=== PATIENT | female | born 1995 | race American Indian/Alaskan Native ===

== ENCOUNTER 2020-06-17 00:16 | Emergency (ER) | payer OTHER | END 2020-06-17 00:45 | disposition left against medical advice (07) | LOC: ED 00:16 | DX: H57.11 Ocular pain, right eye (principal); R10.9 Unspecified abdominal pain; Z53.21 Procedure and treatment not carried out due to patient leaving prior to being seen by health care provider ==

== ENCOUNTER 2020-06-24 12:06 | Emergency (ER) | payer OTHER ==
[2020-06-24 12:17] VITALS: BP 118/68
--- NOTE | 2020-06-24 13:20 | Cat Scan Report ---
CT HEAD WITHOUT CONTRAST INDICATION / CLINICAL INFORMATION: headache. TECHNIQUE: All CT scans at this location are performed using CT dose reduction for ALARA by means of automated e xposure control. COMPARISON: None available. FINDINGS: HEMORRHAGE: None. EXTRA-AXIAL SPACES: Normal in size and morphology for the patient's age. VENTRICULAR SYSTEM: Normal in size and morphology for the patient's age. CEREBRAL PARENCHYMA: No significant abnormality. No acute territorial infarct. MIDLINE SHIFT OR HERNIATION: None. CEREBELLUM / BRAINSTEM: No significant abnormality. ORBITS: Normal as visualized. SOFT TISSUES of HEAD: No significant abnormality. CALVARIUM: No significant abnormality. PARANASAL SINUSES / MASTOID AIR CELLS: Normal as visualized. ADDITIONAL FINDINGS: None. IMPRESSION: 1. No acute intracranial abnormality. Signer Name: Ivory Varela MD Signed: 06/24/2020 1:15 PM Workstation Name: [id number]
[2020-06-24 13:23] LABS: Basophils % (Auto) 0.6 % (0.0-1.8); Eosinophils # (Auto) 0.2 K/mm3 (0.0-0.4); Eosinophils % (Auto) 3.4 % (0.0-4.3); Lymphocytes # (Auto) 1.7 K/mm3 (1.2-5.4); Lymphocytes % (Auto) 33.4 % (13.4-35.0); Mean Corpuscular HGB Conc 36 % (30-34); Mean Corpuscular Volume 89 fl (79-97); Monocytes # (Auto) 0.5 K/mm3 (0.0-0.8); Monocytes % (Auto) 8.9 % (0.0-7.3); Platelet Count 327 K/mm3 (140-440); Red Blood Count 4.28 M/mm3 (3.65-5.03); Red Cell Distribution Width 13.4 % (13.2-15.2)
[2020-06-24 13:27] LABS: Hematocrit 38.2 % (30.3-42.9); Hemoglobin 13.8 gm/dl (10.1-14.3)
[2020-06-24 13:31] LABS: Alanine Aminotransferase 10 units/L (7-56); Albumin 3.9 g/dL (3.9-5); Blood Urea Nitrogen 10 mg/dL (7-17); Calcium 8.9 mg/dL (8.4-10.2); Hemolysis Index 4
[2020-06-24 13:40] LABS: BUN/Creatinine Ratio 17
--- NOTE | 2020-06-24 14:43 | Emergency Department Report ---
ED Neuro Deficit HPI - General Chief Complaint: Neuro Symptoms/Deficit Stated Complaint: RIGHT SIDE WEAKNESS Time Seen by Provider: 06/24/20 12:31 Source: patient Mode of arrival: Ambulatory Limitations: No Limitations - History of Present Illness Initial Comments: 24-year-old F Faroese female with past medical history of schizophrenia currently patient ankle presents emergency department complaining of a dull headache and some right-sided numbness of her entire body but reports no loss of consciousness no blurred vision no speech deficits no trauma. Reports no fever, chills, sweats no chest pain palpitations. States this is been going on for the last day or so for unknown reasons and she wants to get checked out because many people think she is just faking. Severity: mild Improves With: none Worsens With: none On Anticoagulants: No Context: gradual onset Associated Symptoms: denies other symptoms. denies: chest pain, cough, diaphoresis, loss of appetite, shortness of breath, syncope, weakness - Related Data Allergies/Adverse Reactions: Allergies Allergy/AdvReac Type Severity Reaction Status Date / Time Penicillins Allergy Unknown Verified 06/24/20 12:10 ED Review of Systems ROS: Stated complaint: RIGHT SIDE WEAKNESS Other details as noted in HPI Comment: All other systems reviewed and negative ED Past Medical Hx - Past Medical History Previous Medical History?: Yes Hx Psychiatric Treatment: Yes (sczhiophrenia, bipolar, ocd) - Surgical History Past Surgical History?: Yes Additional Surgical History: hernia repair - Social History Smoking Status: Never Smoker Substance Use Type: None ED Neuro Physical Exam - General Limitations: No Limitations General appearance: alert, in no apparent distress Suspected Stroke: No - Head Head exam: Present: atraumatic, normocephalic - Eye Eye exam: Present: normal appearance, PERRL, EOMI Pupils: Present: normal accommodation - ENT ENT exam: Present: normal exam, mucous membranes moist - Neck Neck exam: Present: normal inspection - Respiratory Respiratory exam: Present: normal lung sounds bilaterally. Absent: respiratory distress - Cardiovascular Cardiovascular Exam: Present: regular rate, normal rhythm. Absent: systolic murmur, diastolic murmur, rubs, gallop - GI/Abdominal GI/Abdominal exam: Present: soft, normal bowel sounds - Extremities Exam Extremities exam: Present: normal inspection - Back Exam Back exam: Present: normal inspection - Neurological Exam Neurological exam: Present: alert, oriented X3, CN II-XII intact, normal gait, reflexes normal, other (No ataxia speech normal gait coordinated and smooth memory recall). Absent: motor sensory deficit - NIHSS Assessment Interval: Baseline 1a. Level of Consciousness: alert/keenly responsive 1b. LOC Questions: answers both correctly 1c. LOC Commands: performs tasks correctly 2. Best Gaze: normal 3. Visual: no visual loss 4. Facial Palsy: normal symmetrical movement 5b. Motor Arm Right: no drift 5a. Motor Arm Left: no drift 6a. Motor Leg Left: no drift 6b. Motor Leg Right: no drift 7. Limb Ataxia: absent 8. Sensory: normal 9. Best Language: no aphasia 10. Dysarthria: normal 11. Extinction/Inattention: no abnormality Total Score: 0 Stroke Severity: No Stroke Symptoms - Psychiatric Psychiatric exam: Present: normal affect, normal mood, anxious (Has been anxious about her mom being on the depression she is making things up and that it is related to her schizophrenia diagnosis patient requesting several times to speak with her mom have asked to call mom to prove that she is not faking). Absent: flat affect, manic, homicidal ideation, suicidal ideation - Skin Skin exam: Present: warm, dry, intact, normal color. Absent: rash ED Course Vital Signs 06/24/20 12:11 Temperature 99.4 F Pulse Rate 103 H Respiratory 18 Rate Blood Pressure 118/68 O2 Sat by Pulse 96 Oximetry - Lab Data Result diagrams: 06/24/20 13:01 06/24/20 12:57 Lab Results 06/24/20 06/24/20 06/24/20 Range/Units 12:29 12:57 13:01 WBC 5.2 (4.5-11.0) K/mm3 RBC 4.28 (3.65-5.03) M/mm3 Hgb 13.8 (10.1-14.3) gm/dl Hct 38.2 (30.3-42.9) % MCV 89 (79-97) fl MCH 32 (28-32) pg MCHC 36 H (30-34) % RDW 13.4 (13.2-15.2) % Plt Count 327 (140-440) K/mm3 Lymph % (Auto) 33.4 (13.4-35.0) % [place] % (Auto) 8.9 H (0.0-7.3) % Eos % (Auto) 3.4 (0.0-4.3) % Baso % (Auto) 0.6 (0.0-1.8) % Lymph # 1.7 (1.2-5.4) K/mm3 [place] # 0.5 (0.0-0.8) K/mm3 Eos # 0.2 (0.0-0.4) K/mm3 Baso # 0.0 (0.0-0.1) K/mm3 Seg Neutrophils % 53.7 (40.0-70.0) % Seg Neutrophils # 2.8 (1.8-7.7) K/mm3 Sodium 138 (137-145) mmol/L Potassium 3.9 (3.6-5.0) mmol/L Chloride 105.5 (98-107) mmol/L Carbon Dioxide 21 L (22-30) mmol/L Anion Gap 15 mmol/L BUN 10 (7-17) mg/dL Creatinine 0.6 (0.6-1.2) mg/dL Estimated GFR > 60 ml/min BUN/Creatinine Ratio 17 % Glucose 91 (65-100) mg/dL POC Glucose 96 (70-105) Calcium 8.9 (8.4-10.2) mg/dL Total Bilirubin 0.50 (0.1-1.2) mg/dL AST 15 (5-40) units/L ALT 10 (7-56) units/L Alkaline Phosphatase 87 (35-129) units/L Total Protein 6.9 (6.3-8.2) g/dL Albumin 3.9 (3.9-5) g/dL Albumin/Globulin Ratio 1.3 % Lab Results 06/24/20 06/24/20 06/24/20 Range/Units 12:29 12:57 13:01 WBC 5.2 (4.5-11.0) K/mm3 RBC 4.28 (3.65-5.03) M/mm3 Hgb 13.8 (10.1-14.3) gm/dl Hct 38.2 (30.3-42.9) % MCV 89 (79-97) fl MCH 32 (28-32) pg MCHC 36 H (30-34) % RDW 13.4 (13.2-15.2) % Plt Count 327 (140-440) K/mm3 Lymph % (Auto) 33.4 (13.4-35.0) % [place] % (Auto) 8.9 H (0.0-7.3) % Eos % (Auto) 3.4 (0.0-4.3) % Baso % (Auto) 0.6 (0.0-1.8) % Lymph # 1.7 (1.2-5.4) K/mm3 [place] # 0.5 (0.0-0.8) K/mm3 Eos # 0.2 (0.0-0.4) K/mm3 Baso # 0.0 (0.0-0.1) K/mm3 Seg Neutrophils % 53.7 (40.0-70.0) % Seg Neutrophils # 2.8 (1.8-7.7) K/mm3 Sodium 138 (137-145) mmol/L Potassium 3.9 (3.6-5.0) mmol/L Chloride 105.5 (98-107) mmol/L Carbon Dioxide 21 L (22-30) mmol/L Anion Gap 15 mmol/L BUN 10 (7-17) mg/dL Creatinine 0.6 (0.6-1.2) mg/dL Estimated GFR > 60 ml/min BUN/Creatinine Ratio 17 % Glucose 91 (65-100) mg/dL POC Glucose 96 (70-105) Calcium 8.9 (8.4-10.2) mg/dL Total Bilirubin 0.50 (0.1-1.2) mg/dL AST 15 (5-40) units/L ALT 10 (7-56) units/L Alkaline Phosphatase 87 (35-129) units/L Total Protein 6.9 (6.3-8.2) g/dL Albumin 3.9 (3.9-5) g/dL Albumin/Globulin Ratio 1.3 % - Radiology Data Radiology results: report reviewed Patient Name: JESUS MAURER Gender: Female Date of : 1995 Referring Provider: SIDDHARTH MARTINEZ Organization: [facility] Accession Number: [id number] Requested Date: June 24, 2020 12:31 Report Status: Final Requested Procedure: 1 Procedure Description: CT head/brain wo con Modality: CT Findings Reporting MD: Ivory Varela Dictation Time: June 24, 2020 12:15 Kennel Supervisor: Not available Manufacturing Applications Engineer Date: CT HEAD WITHOUT CONTRAST INDICATION / CLINICAL INFORMATION: headache. TECHNIQUE: All CT scans at this location are performed using CT dose reduction for ALARA by means of automated exposure control. COMPARISON: None available. FINDINGS: HEMORRHAGE: None. EXTRA-AXIAL SPACES: Normal in size and morphology for the patient's age. VENTRICULAR SYSTEM: Normal in size and morphology for the patient's age. CEREBRAL PARENCHYMA: No significant abnormality. No acute territorial infarct. MIDLINE SHIFT OR HERNIATION: None. CEREBELLUM / BRAINSTE M: No significant abnormality. ORBITS: Normal as visualized. SOFT TISSUES of HEAD: No significant abnormality. CALVARIUM: No significant abnormality. PARANASAL SINUSES / MASTOID AIR CELLS: Normal as visualized. ADDITIONAL FINDINGS: None. IMPRESSION: 1. No acute intracranial abnormality. Signer Name: Ivory Varela MD Signed: 06/24/2020 12:15 PM Workstation Name: [employer]-[id number] - Medical Decision Making This patient presents with a headache and right-sided numbness tingling of the face arms legs and body of an unknown etiology. Differential diagnosis includes migraine versus tension type headache. No headache red flags. Neurologic exam without evidence of meningismus, focal neurologic findings.Based on the patient's history and physical there is very low clinical suspicion for significant intracranial pathology. The headache was NOT sudden onset, NOT maximal at onset, there are NO neurologic findings, the patient does NOT have a fever, the patient does NOT have any jaw claudication, the patient does NOT endorse a clotting disorder, patient DENIES any trauma or eye pain and the headache is NOT associated with dizziness or ataxia. Presentation not consistent with acute intracranial bleed to include SAH (lack of risk factors, headache history). Presentation not consistent with acute VENTILATION EQUIPMENT TENDER infection to include meningitis or brain abscess, Temporal arteritis unlikely, as is acute angle closure glaucoma given history and physical findings. Presentation not consistent with other acute, emergent causes of headache at this time. Plan to treat symptomatically with pain medication. No indication for LP at this time. Plan: pain medication, CT brain was normal, serial reassessment Critical care attestation.: If time is entered above; I have spent that time in minutes in the direct care of this critically ill patient, excluding procedure time. ED Disposition Clinical Impression: Cephalgia, Normal CT scan of head, Numbness Disposition: DC-01 TO HOME OR SELFCARE Is pt being admited?: No Does the pt Need Aspirin: No Condition: Stable Instructions: Paresthesia (ED), Acute Headache (ED) Additional Instructions: He can return to [facility] to continue your treatment therapy utilize Tylenol and Motrin as needed for your symptoms be sure to follow-up with your primary care provider for further evaluation and management Referrals: PRIMARY MD UMESH [Primary Care Provider] - 3-5 Days APOLONIA STRICKLAND MD [Referring] - 3-5 Days
== END 2020-06-24 14:55 | disposition home or self-care (01) ==
LOC: ED 12:06
DX: R51 Headache (principal); R20.0 Anesthesia of skin; F25.0 Schizoaffective disorder, bipolar type; Z88.0 Allergy status to penicillin; Z98.890 Other specified postprocedural states
CPT/HCPCS: 36415; 70450; 80053; 82962; 85025

== ENCOUNTER → 2021-01-01 05:39 | Emergency (ER) | payer OTHER | END | disposition left against medical advice (07) | LOC: ED 05:39 | DX: K08.89 Other specified disorders of teeth and supporting structures (principal); Z53.21 Procedure and treatment not carried out due to patient leaving prior to being seen by health care provider ==

== ENCOUNTER 2022-01-16 17:28 | Emergency (ER) | payer OTHER ==
[2022-01-16] MEDS ORDERED: ONDANSETRON 4 MG/2 ML INJ IV ONE (20:07)
[2022-01-16] MEDS ORDERED: DICYCLOMINE 20 MG TAB PO ONE (20:07)
[2022-01-16] MEDS ORDERED: SODIUM CHLORIDE 0.9% 1000 ML 1,000 ML IV ONE (20:10)
--- NOTE | 2022-01-16 20:21 | Emergency Department Report ---
ED N/V/D HPI - General Chief complaint: Nausea/Vomiting/Diarrhea Stated complaint: NAUSEA/DIAHERRA Source: patient Mode of arrival: Ambulatory Limitations: No Limitations - History of Present Illness Initial comments: 26-year-old female presents to the ED complaining of nausea and vomiting, diarrhea, fever chills and body ache x2 days. Patient states that she is Covid vaccinated x1 year ago. She states that she took some Tylenol x1 day ago without any relief. She states that she also took some flu medication without any relief. Patient states that she has diarrhea x2 today. 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 Denies any cough at present. Patient is alert and oriented x3. Patient states that she has been taking various aqjr-uxb-zxqblvl cough and cold medicine without any relief. No acute distress noted. No ill appearance noted. She denies that she is sexually active. She states that last menstrual cycle was last month. - Related Data Previous Rx's Medication Instructions Recorded Last Taken Type Dicyclomine [Bentyl] 20 mg PO QID 5 Days #30 tablet 01/16/22 Unknown Rx Promethazine [Phenergan] 25 mg PO Q6HR PRN 15 Days #30 tab 01/16/22 Unknown Rx Sulfamethoxazole/Trimethoprim 1 each PO BID 10 Days #20 tab 01/16/22 Unknown Rx [Bactrim DS TAB] Allergies Allergy/AdvReac Type Severity Reaction Status Date / Time Penicillins Allergy Unknown Verified 06/24/20 12:10 ED Review of Systems ROS: Stated complaint: NAUSEA/DIAHERRA Other details as noted in HPI Constitutional: denies: chills, fever Eyes: denies: eye pain, eye discharge, vision change ENT: denies: ear pain, throat pain Respiratory: denies: cough, shortness of breath, wheezing Cardiovascular: denies: chest pain, palpitations Endocrine: no symptoms reported Gastrointestinal: nausea, vomiting, diarrhea. denies: abdominal pain Genitourinary: denies: urgency, dysuria, discharge Musculoskeletal: denies: back pain, joint swelling, arthralgia Skin: denies: rash, lesions Neurological: denies: headache, weakness, paresthesias Psychiatric: denies: anxiety, depression Hematological/Lymphatic: denies: easy bleeding, easy bruising ED Past Medical Hx - Past Medical History Hx Psychiatric Treatment: Yes (sczhiophrenia, bipolar, ocd) - Surgical History Additional Surgical History: hernia repair - Social History Smoking Status: Never Smoker Substance Use Type: None - Medications Home Medications: Home Medications Medication Instructions Recorded Confirmed Last Taken Type Dicyclomine [Bentyl] 20 mg PO QID 5 Days #30 tablet 01/16/22 Unknown Rx Promethazine [Phenergan] 25 mg PO Q6HR PRN 15 Days #30 tab 01/16/22 Unknown Rx Sulfamethoxazole/Trimethoprim 1 each PO BID 10 Days #20 tab 01/16/22 Unknown Rx [Bactrim DS TAB] ED Physical Exam - General Limitations: No Limitations General appearance: alert, in no apparent distress - Head Head exam: Present: atraumatic, normocephalic - Eye Eye exam: Present: normal appearance - ENT ENT exam: Present: mucous membranes moist - Neck Neck exam: Present: normal inspection - Respiratory Respiratory exam: Present: normal lung sounds bilaterally. Absent: respiratory distress - Cardiovascular Cardiovascular Exam: Present: regular rate, normal rhythm. Absent: systolic murmur, diastolic murmur, rubs, gallop - GI/Abdominal GI/Abdominal exam: Present: soft, normal bowel sounds - Extremities Exam Extremities exam: Present: normal inspection - Back Exam Back exam: Present: normal inspection - Neurological Exam Neurological exam: Present: alert, oriented X3 - Psychiatric Psychiatric exam: Present: normal affect, normal mood - Skin Skin exam: Present: warm, dry, intact, normal color. Absent: rash ED Course Vital Signs 01/16/22 19:56 Temperature 98.3 F Pulse Rate 88 Respiratory 18 Rate Blood Pressure 95/52 O2 Sat by Pulse 96 Oximetry ED Medical Decision Making - Lab Data Result diagrams: 01/16/22 20:37 01/16/22 20:37 - Radiology Data Patient: JESUS MAURER MR#: [id number] : 1995 Acct:[id number] Age/Sex: 26 / F ADM Date: 01/16/22 Loc: ED Attending Dr: Ordering Physician: VEAN URBAN Date of Service: 01/16/22 Procedure(s): CT abdomen pelvis w con Accession Number(s): [id number] cc: EVAN URBAN CT ABDOMEN AND PELVIS WITH CONTRAST INDICATION: abdomen pain. TECHNIQUE: Axial CT images were obtained through the abdomen and pelvis after 100 cc Omni [address] scans at this location are performed using CT dose reduction for ALARA by means of automated exposure control. COMPARISON: None available. FINDINGS: LOWER CHEST: No significant abnormality. LIVER: No significant abnormality. GALLBLADDER: No significant abnormality. BILE DUCTS: No significant abnormality. PANCREAS: No significant abnormality. SPLEEN: No significant abnormality. ADRENALS: No significant abnormality. RIGHT KIDNEY and URETER: No significant abnormality. LEFT KIDNEY and URETER: No significant abnormality. STOMACH and SMALL BOWEL: Fluid-filled nondilated small bowel COLON: Fluid-filled nondilated: APPENDIX: No significant abnormality. PERITONEUM: No free fluid. No free air. No fluid collection. LYMPH NODES: No significant adenopathy. AORTA and ARTERIES: No significant abnormality. IVC and VEINS: No significant abnormality. URINARY BLADDER: No significant abnormality. REPRODUCTIVE ORGANS: No significant abnormality. ADDITIONAL FINDINGS: None. SKELETAL SYSTEM: No significant abnormality. IMPRESSION: 1. Probable viral gastroenteritis with fluid-filled nondilated large and small bowel. Signer Name: Naveed Thakur MD Signed: 01/16/2022 10:30 PM Workstation Name: [id number] Transcribed By: TL Dictated By: Naveed Thakur MD Electronically Authenticated By: Naveed Thakur MD Signed Date/Time: 01/16/222229 DD/ 27 TD/TT: Print Cancel - Medical Decision Making 26-year-old female presents to the ED complaining of nausea and vomiting, diarrhea, fever chills and body ache x2 days. Patient states that she is Covid vaccinated x1 year ago. She states that she took some Tylenol x1 day ago without any relief. She states that she also took some flu medication without any relief. Patient states that she has diarrhea x2 today. 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 Denies any cough at present. Patient is alert and oriented x3. Patient states that she has been taking various cglp-opk-raolzdx cough and cold medicine without any relief. No acute distress noted. No ill appearance noted. She denies that she is sexually active. She states that last menstrual cycle was last month. Patient UA significant for urinary tract infection showed WBC 18.0 with large blood and small leukocyte Esterase. Patient will be treated with Bactrim DS for 10 days. Patient was given 1 L normal saline, Bentyl 20 mg p.o. and Zofran 4 mg IV. Abnormal Lab Results 01/16/22 01/16/22 01/16/22 20:37 20:37 20:37 WBC 5.3 RBC 4.44 Hgb 13.8 Hct 40.1 MCV 90 MCH 31 MCHC 35 H RDW 13.8 Plt Count 300 Lymph % (Auto) 13.6 [place] % (Auto) 8.6 H Eos % (Auto) 3.4 Baso % (Auto) 0.3 Lymph # (Auto) 0.7 L [place] # (Auto) 0.5 Eos # (Auto) 0.2 Baso # (Auto) 0.0 Seg Neutrophils % 74.1 H Seg Neutrophils # 3.9 Sodium 136 L Potassium 4.2 Chloride 104.4 Carbon Dioxide 21 L Anion Gap 15 BUN 13 Creatinine 0.5 L Estimated GFR > 60 BUN/Creatinine Ratio 26 Glucose 88 Calcium 7.9 L Total Bilirubin 0.60 AST 21 ALT 15 Alkaline Phosphatase 82 Total Protein 6.7 Albumin 3.9 Albumin/Globulin Ratio 1.4 HCG, Qual Negative Urine Color Urine Turbidity Urine pH Ur Specific [place] Urine Protein Urine Glucose (UA) Urine Ketones Urine Blood Urine Nitrite Urine Bilirubin Urine Urobilinogen Ur Leukocyte Esterase Urine WBC (Auto) Urine RBC (Auto) U Epithel Cells (Auto) Urine Mucus Urine Yeast (Budding) 01/16/22 Unknown WBC RBC Hgb Hct MCV MCH MCHC RDW Plt Count Lymph % (Auto) [place] % (Auto) Eos % (Auto) Baso % (Auto) Lymph # (Auto) [place] # (Auto) Eos # (Auto) Baso # (Auto) Seg Neutrophils % Seg Neutrophils # Sodium Potassium Chloride Carbon Dioxide Anion Gap BUN Creatinine Estimated GFR BUN/Creatinine Ratio Glucose Calcium Total Bilirubin AST ALT Alkaline Phosphatase Total Protein Albumin Albumin/Globulin Ratio HCG, Qual Urine Color Yellow Urine Turbidity Slightly-cloudy Urine pH 5.0 Ur Specific [place] 1.025 Urine Protein 30 mg/dl Urine Glucose (UA) Neg Urine Ketones Neg Urine Blood Lg Urine Nitrite Neg Urine Bilirubin Neg Urine Urobilinogen < 2.0 Ur Leukocyte Esterase Sm Urine WBC (Auto) 18.0 H Urine RBC (Auto) > 182.0 U Epithel Cells (Auto) 14.0 H Urine Mucus Few Urine Yeast (Budding) Few Critical care attestation.: If time is entered above; I have spent that time in minutes in the direct care of this critically ill patient, excluding procedure time. ED Disposition Clinical Impression: Viral gastroenteritis, Acute urinary tract infection Disposition: HOME / SELF CARE / HOMELESS Is pt being admited?: No Does the pt Need Aspirin: No Condition: Stable Instructions: Viral Gastroenteritis, Adult, Ljqx-eq-Dvos, Urinary Tract Infection, Adult, [id number] Additional Instructions: Take medication has been prescribed Drink Plenty of fluids Return to the ED for any worsening symptom Prescriptions: Sulfamethoxazole/Trimethoprim [Bactrim DS TAB] 1 each PO BID 10 Days #20 tab Dicyclomine [Bentyl] 20 mg PO QID 5 Days #30 tablet Promethazine [Phenergan] 25 mg PO Q6HR PRN 15 Days #30 tab PRN Reason: Nausea Forms: Work/School Release Form(ED)
[2022-01-16 20:49] LABS: Basophils % (Auto) 0.3 % (0.0-1.8); Eosinophils # (Auto) 0.2 K/mm3 (0.0-0.4); Eosinophils % (Auto) 3.4 % (0.0-4.3); Hematocrit 40.1 % (30.3-42.9); Hemoglobin 13.8 gm/dl (10.1-14.3); Lymphocytes # (Auto) 0.7 K/mm3 (1.2-5.4); Lymphocytes % (Auto) 13.6 % (13.4-35.0); Mean Corpuscular HGB Conc 35 % (30-34); Mean Corpuscular Volume 90 fl (79-97); Monocytes # (Auto) 0.5 K/mm3 (0.0-0.8); Monocytes % (Auto) 8.6 % (0.0-7.3); Platelet Count 300 K/mm3 (140-440); Red Blood Count 4.44 M/mm3 (3.65-5.03); Red Cell Distribution Width 13.8 % (13.2-15.2)
[2022-01-16 21:14] LABS: Alanine Aminotransferase 15 units/L (7-56); Albumin 3.9 g/dL (3.9-5); Blood Urea Nitrogen 13 mg/dL (7-17); Calcium 7.9 mg/dL (8.4-10.2); Hemolysis Index 29
[2022-01-16 21:15] LABS: BUN/Creatinine Ratio 26
[2022-01-16 22:01] LABS: Bilirubin,Urine NEG (Negative); Blood,Urine LG (Negative); Color,Urine Yellow (Yellow); Mucus,Urine FEW /HPF; Urobilinogen,Urine < 2.0 mg/dL (<2.0)
[2022-01-16 22:16] LABS: RBC,Urine > 182.0 /HPF (0.0-6.0)
--- NOTE | 2022-01-16 22:35 | Cat Scan Report ---
CT ABDOMEN AND PELVIS WITH CONTRAST INDICATION: abdomen pain. TECHNIQUE: Axial CT images were obtained through the abdomen and pelvis after 100 cc Omni [address] scans at this location are performed using CT dose reduction for ALARA by means of automated expos ure control. COMPARISON: None available. FINDINGS: LOWER CHEST: No significant abnormality. LIVER: No significant abnormality. GALLBLADDER: No significant abnormality. BILE DUCTS: No significant abnormality. PANCREAS: No significant abnormality. SPLEEN: No significant abnormality. ADRENALS: No significant abnormality. RIGHT KIDNEY and URETER: No significant abnormality. LEFT KIDNEY and URETER: No significant abnormality. STOMACH and SMALL BOWEL: Fluid-filled nondilated small bowel COLON: Fluid-filled nondilated: APPENDIX: No significant abnormality. PERITONEUM: No free fluid. No free air. No fluid collection. LYMPH NODES: No significant adenopathy. AORTA and ARTERIES: No significant abnormality. IVC and VEINS: No significant abnormality. URINARY BLADDER: No significant abnormality. REPRODUCTIVE ORGANS: No significant abnormality. ADDITIONAL FINDINGS: None. SKELETAL SYSTEM: No significant abnormality. IMPRESSION: 1. Probable viral gastroenteritis with fluid-filled nondilated large and small bowel. Signer Name: Naveed Thakur MD Signed: 01/16/2022 10:30 PM Workstation Name: [id number]
[2022-01-16 23:23] VITALS: BP 107/80
== END 2022-01-16 23:29 | disposition home or self-care (01) ==
LOC: ED 17:28
DX: A08.4 Viral intestinal infection, unspecified (principal); N39.0 Urinary tract infection, site not specified; F31.9 Bipolar disorder, unspecified; R10.9 Unspecified abdominal pain; F20.9 Schizophrenia, unspecified; Z88.0 Allergy status to penicillin; Z79.899 Other long term (current) drug therapy
CPT/HCPCS: 36415; 74177; 80053; 81001; 84703; 85025; 87086; 96361; 96374; 99284; J2405; J7030; Q9967; Q0162